=== PATIENT | male | born 1950 | race Caucasian/White ===

== ENCOUNTER 2018-10-18 20:58 | Emergency (ER) | payer MEDICARE ==
[2018-10-18 21:10] VITALS: BP 187/84
--- NOTE | 2018-10-18 21:43 | UC ---
UC General HPI - HPI Summary HPI Summary: 68-year-old male comes in with a chief complaint of lower thoracic back pain. Started about 2 weeks ago. Pains worse when he takes a deep breath or when he twists and turns and bends. No fevers. He has been feeling more short of breath. He does have inhalers which she is use which does help decrease the shortness of breath. Denies any sputum production. Denies any anterior chest pain or abdominal pain. Patient does self catheterize and the pain is having now reminds of when he had a urinary tract infection. No specific trauma. No fevers. Patient wears bilateral foot drop brace is. No history of DVT or pulmonary embolus. - History of Current Complaint Chief Complaint: UCBackPain Stated Complaint: BACK PAIN Pain Intensity: 8 - Allergy/Home Medications Allergies/Adverse Reactions: Allergies Allergy/AdvReac Type Severity Reaction Status Date / Time buspirone Allergy Anxiety Verified 10/18/18 21:13 gemfibrozil [From Lopid] Allergy Unknown Verified 10/18/18 21:13 Reaction Details lorazepam [From Ativan] Allergy See Comment Verified 10/18/18 21:13 lovastatin Allergy Muscle Ache Verified 10/18/18 21:13 morphine Allergy Headache Verified 10/18/18 21:13 niacin Allergy Rash Verified 10/18/18 21:13 oxybutynin Allergy Unknown Verified 10/18/18 21:13 Reaction Details simvastatin Allergy Joint Pain Verified 10/18/18 21:13 sulfamethoxazole Allergy Rash Verified 10/18/18 21:13 [From Bactrim] trimethoprim [From Bactrim] Allergy Rash Verified 10/18/18 21:13 Home Medications: Home Medications Fenofibrate(NF) [Tricor(NF)] 145 mg PO DAILY 10/18/18 [History Confirmed ] Insulin Aspart [Novolog Penfill] 5 unit SC 10/18/18 [History] Insulin Glargine,Hum.rec.anlog [Lantus] 48 unit SQ DAILY 10/18/18 [History Confirmed 10/18/18] PMH/Surg Hx/FS Hx/Imm Hx Previously Healthy: Yes Endocrine History: Diabetes, Hypothyroidism Cardiovascular History: Hypertension - Surgical History Surgical History: Yes Surgery Procedure, Year, and Place: nose reconstruction surgery. CATARACTS - Family History Known Family History: Positive: Non-Contributory - Social History Alcohol Use: Occasionally Substance Use Type: Prescribed Smoking Status (MU): Former Smoker Household Exposure Type: Cigarettes - Immunization History Most Recent Influenza Vaccination: Fall 2013 Most Recent Tetanus Shot: within ten year Most Recent Pneumonia Vaccination: within three Review of Systems All Other Systems Reviewed And Are Negative: Yes Constitutional: Positive: Negative Skin: Positive: Negative Eyes: Positive: Negative ENT: Positive: Negative Respiratory: Positive: Shortness Of Breath Cardiovascular: Positive: Other - see hpi Gastrointestinal: Positive: Negative Genitourinary: Positive: Other - self catheterizes Motor: Positive: Other - Chronic neurologic condition Neurovascular: Positive: Negative Musculoskeletal: Positive: Other: - see hpi Neurological: Positive: Other - chronic neurologic condition Psychological: Positive: Negative Is Patient Immunocompromised?: No Physical Exam Triage Information Reviewed: Yes Appearance: Well-Appearing, No Pain Distress, Well-Nourished Vital Signs: Initial Vital Signs Temp 98.6 F 10/18/18 21:04 Pulse 73 10/18/18 21:04 Resp 18 10/18/18 21:04 BP 187/84 10/18/18 21:04 Pulse Ox 95 10/18/18 21:04 Vital Signs Reviewed: Yes Eye Exam: Normal Eyes: Positive: Conjunctiva Clear Neck: Positive: Supple Respiratory: Positive: Lungs clear, Normal breath sounds, No respiratory distress, Other: - tender to palpation lower thoracic back at T8-T12 level Cardiovascular: Positive: RRR Abdomen Description: Positive: Nontender, Soft Musculoskeletal: Positive: Other: - chronic le weakness, patient is wearing b/l foot drop braces Neurological: Positive: Alert Psychological Exam: Normal Psychological: Positive: Normal Response To Family, Age Appropriate Behavior Skin Exam: Normal Skin: Positive: Other - No rash on back Course/Dx - Course Course Of Treatment: I discussed the x-rays with the patient and his . I do not see any acute pathology on the chest x-ray radiologist reading is pending. The urine did show some leukocytes. Patient reports he's had a similar pain in the past when he had a urinary tract infection. Going to go ahead and treat with Keflex 500 mg by mouth 3 times a day for 10 days. Patient also take ibuprofen for his pain. We discussed the possibility of a respiratory infection or pulmonary embolus as the cause of the pain. We discussed that we did not rule out a pulmonary embolus. Is also been short of breath he can continue taking his inhalers. We discussed that if he did not improve or if he worsened he needed to get reevaluated in the emergency department. - Diagnoses Provider Diagnosis: Thoracic back pain, Shortness of breath Discharge - Sign-Out/Discharge Documenting (check all that apply): Patient Departure All imaging exams completed and their final reports reviewed: No - Discharge Plan Condition: Stable Disposition: HOME Prescriptions: Cephalexin CAP* [Keflex CAP*] 500 mg PO TID #29 cap Patient Education Materials: Back Pain (ED) Referrals: Flavio Yoder MD [Primary Care Provider] - Additional Instructions: FOLLOW UP WITH YOUR DOCTOR. GO TO THE EMERGENCY DEPARTMENT IF YOUR CONDITION WORSENS; CHEST PAIN, SHORTNESS OF BREATH, FEVER, YOU FEEL ILL, ABDOMINAL PAIN OR ANY QUESTIONS OR CONCERNS. - Billing Disposition and Condition Condition: STABLE Disposition: Home
[2018-10-18] MEDS ORDERED: Cephalexin CAP* 500 MG PO ONE (22:31)
--- NOTE | 2018-10-19 13:25 | UC ---
- Progress Note Progress Note: CXR: IMPRESSION: NO ACTIVE CARDIOPULMONARY DISEASE. Wet read correct Course/Dx - Diagnoses Provider Diagnoses: Thoracic back pain, Shortness of breath Discharge - Sign-Out/Discharge Documenting (check all that apply): Post-Discharge Follow Up All imaging exams completed and their final reports reviewed: Yes - Discharge Plan Condition: Stable Disposition: HOME Prescriptions: Cephalexin CAP* [Keflex CAP*] 500 mg PO TID #29 cap Patient Education Materials: Back Pain (ED) Referrals: Flavio Yoder MD [Primary Care Provider] - Additional Instructions: FOLLOW UP WITH YOUR DOCTOR. GO TO THE EMERGENCY DEPARTMENT IF YOUR CONDITION WORSENS; CHEST PAIN, SHORTNESS OF BREATH, FEVER, YOU FEEL ILL, ABDOMINAL PAIN OR ANY QUESTIONS OR CONCERNS. - Billing Disposition and Condition Condition: STABLE Disposition: Home
--- NOTE | 2018-10-21 16:27 | UC ---
- Progress Note Progress Note: + Enterobacter cloacae pt on keflex resistance to Cefasoline, sensitive other cephalosporin please call pt - if improved, continue if not, I'll send different Rx Avani 10/21/18 Course/Dx - Diagnoses Provider Diagnoses: Thoracic back pain, Shortness of breath Discharge - Sign-Out/Discharge Documenting (check all that apply): Post-Discharge Follow Up All imaging exams completed and their final reports reviewed: Yes - Discharge Plan Condition: Stable Disposition: HOME Prescriptions: Cephalexin CAP* [Keflex CAP*] 500 mg PO TID #29 cap Patient Education Materials: Back Pain (ED) Referrals: Flavio Yoder MD [Primary Care Provider] - Additional Instructions: FOLLOW UP WITH YOUR DOCTOR. GO TO THE EMERGENCY DEPARTMENT IF YOUR CONDITION WORSENS; CHEST PAIN, SHORTNESS OF BREATH, FEVER, YOU FEEL ILL, ABDOMINAL PAIN OR ANY QUESTIONS OR CONCERNS. - Billing Disposition and Condition Condition: STABLE Disposition: Home
== END 2018-10-18 22:41 | disposition home or self-care (01) ==
LOC: UCEAST 20:58
DX: M54.6 Pain in thoracic spine (principal); R06.02 Shortness of breath; N39.0 Urinary tract infection, site not specified; B96.89 Other specified bacterial agents as the cause of diseases classified elsewhere; E11.9 Type 2 diabetes mellitus without complications; I10 Essential (primary) hypertension; Z79.4 Long term (current) use of insulin; Z87.891 Personal history of nicotine dependence
CPT/HCPCS: 71046; 81003; 87077; 87086; 87186; 99212; A9270-GY; G0463